=== PATIENT | male | born 1945 ===

== ENCOUNTER 2018-08-28 11:55 | Emergency (ER) | payer OTHER ==
[~2018-08-28] VITALS: Ht 177.8 cm; Wt 73.5 kg
[~2018-08-28 11:55] MED LIST: OSEL75CA PO
== END 2018-08-28 18:49 | disposition home or self-care (01) ==
LOC: ER 11:55
DX: K58.8 Other irritable bowel syndrome (principal)

== ENCOUNTER → 2018-09-23 07:59 | Outpatient (CLI) | payer OTHER | END | disposition home or self-care (01) | LOC: RAD 07:59 | DX: M54.5 Low back pain (principal); K57.30 Diverticulosis of large intestine without perforation or abscess without bleeding; N40.1 Benign prostatic hyperplasia with lower urinary tract symptoms; N41.0 Acute prostatitis; Z68.23 Body mass index [BMI] 23.0-23.9, adult; E46 Unspecified protein-calorie malnutrition; E55.9 Vitamin D deficiency, unspecified; E88.89 Other specified metabolic disorders ==

== ENCOUNTER 2018-11-03 13:05 | Outpatient (CLI) | payer OTHER | END 2018-11-03 13:16 | disposition home or self-care (01) | LOC: MRI 13:05 | DX: M54.2 Cervicalgia (principal) | CPT/HCPCS: 72141 ==

== ENCOUNTER 2019-12-12 12:39 | Outpatient (CLI) | payer OTHER | END 2019-12-12 12:48 | disposition home or self-care (01) | LOC: RAD 12:39 | PROVIDERS: ATTEND Internal Medicine | DX: M54.5 Low back pain (principal) | CPT/HCPCS: 72148 ==

== ENCOUNTER 2020-03-26 09:20 | Outpatient (CLI) | payer OTHER | END 2020-03-26 09:25 | disposition home or self-care (01) | LOC: NUCLEAR 09:20 | PROVIDERS: ATTEND Internal Medicine | DX: R00.2 Palpitations (principal) ==

== ENCOUNTER 2021-05-14 04:56 | Emergency (ER) | payer OTHER ==
[~2021-05-14] VITALS: Ht 177.8 cm; Wt 76.2 kg
[2021-05-14] MEDS ORDERED: ALTACE5 MG (05:13)
[2021-05-14] MEDS ORDERED: KAPSPARGO SPRIN25 MG (05:13)
[2021-05-14] MEDS ORDERED: CENTRUM ADULTS1 EACH (05:13)
[2021-05-14] MEDS ORDERED: MAXIMUM D3325 MCG (05:13)
== END 2021-05-14 08:26 ==
LOC: ER 04:56
DX: I10 Essential (primary) hypertension (principal); R00.2 Palpitations; Z88.6 Allergy status to analgesic agent; Z91.018 Allergy to other foods

== ENCOUNTER 2022-01-09 23:30 | Emergency (ER) | payer OTHER ==
[~2022-01-09] VITALS: Ht 177.8 cm; Wt 72.6 kg
[~2022-01-09 23:30] MED LIST changes: +ALTACE5 MG; +CENTRUM ADULTS1 EACH; +KAPSPARGO SPRIN25 MG; +MAXIMUM D3325 MCG
== END 2022-01-10 03:11 | disposition home or self-care (01) ==
LOC: ER 23:30
DX: R31.9 Hematuria, unspecified (principal); Z88.6 Allergy status to analgesic agent; N40.0 Benign prostatic hyperplasia without lower urinary tract symptoms; K80.20 Calculus of gallbladder without cholecystitis without obstruction; K57.90 Diverticulosis of intestine, part unspecified, without perforation or abscess without bleeding

== ENCOUNTER 2022-03-16 11:39 | Outpatient (CLI) | payer OTHER | END 2022-03-16 11:49 | disposition home or self-care (01) | LOC: SONOGRAMA 11:39 | PROVIDERS: ATTEND Internal Medicine | DX: N40.0 Benign prostatic hyperplasia without lower urinary tract symptoms (principal); R33.9 Retention of urine, unspecified ==

== ENCOUNTER 2022-05-28 07:39 | Outpatient (CLI) | payer OTHER | END 2022-05-28 07:52 | disposition home or self-care (01) | LOC: TOM 07:39 | PROVIDERS: ATTEND Internal Medicine | DX: K40.90 Unilateral inguinal hernia, without obstruction or gangrene, not specified as recurrent (principal) ==

== ENCOUNTER 2024-05-22 08:01 | Outpatient (CLI) | payer OTHER | END 2024-05-22 08:03 | disposition home or self-care (01) | LOC: SONOGRAMA 08:01 | PROVIDERS: ATTEND Internal Medicine | DX: N18.2 Chronic kidney disease, stage 2 (mild) (principal) ==